=== PATIENT | male | born 1980 | race Caucasian/White ===

== ENCOUNTER 2017-05-14 02:10 | Emergency (ER) | payer OTHER ==
[~2017-05-14] VITALS: Ht 167.6 cm; Wt 113.1 kg
[2017-05-14 02:24] VITALS: BP 143/88
--- NOTE | 2017-05-14 02:29 | NUR ---
patient to er bed 5
--- NOTE | 2017-05-14 02:43 | NUR ---
37Y/M PT. PRESENTS TO ED WITH C/O POSIBLE BUG BITE. PT. STATES FELT LIKE BUG BIT AT THE BAG WHILE CLEANING THE GARAGE. NO MEDICAL HX. AAO X4, AMBULATORY WITH STEADY GAIT. RESPIRATIONS ROOM AIR, EVEN AND UNLABORED. SKIN WARM AND DRY, UPPER BACK 2 BUMP WITH BLACK STING IN, NO REDNESS. VSS, NO S/SX OF DISTRESS AT THIS TIME. ER MD MADE AWARE OF PT. STATUS.
[2017-05-14 03:17] VITALS: BP 141/85
--- NOTE | 2017-05-14 03:18 | NUR ---
Patient discharged with v/s stable. Written and verbal after care instructions given and explained. Patient alert, oriented and verbalized understanding of instructions. Ambulatory with steady gait. All questions addressed prior to discharge. ID band removed. Patient advised to follow up with PMD. Rx of BACITRACIN 500UNIT TOPICAL TID given. Patient educated on indication of medication including possible reaction and side effects. Opportunity to ask questions provided and answered.
== END 2017-05-14 03:18 | disposition home or self-care (01) ==
LOC: MED 02:10
DX: S20.469A Insect bite (nonvenomous) of unspecified back wall of thorax, initial encounter (principal); I10 Essential (primary) hypertension; Z90.49 Acquired absence of other specified parts of digestive tract; W57.XXXA Bitten or stung by nonvenomous insect and other nonvenomous arthropods, initial encounter; Y93.89 Activity, other specified; Y92.89 Other specified places as the place of occurrence of the external cause; Y99.8 Other external cause status
CPT/HCPCS: 99283